=== PATIENT | female | born 1930 | race Caucasian/White ===

== ENCOUNTER 2017-02-27 17:20 | Emergency (ER) | payer MEDICARE, OTHER ==
[~2017-02-27 17:20] MED LIST: ACET-1890 PO; Aspirin PO; CALC600T85 PO; CLOP75TA3 PO; DOCU100T7 PO; HYDR25TA4 PO; LAMO150T2 PO; LISI-611 PO; PRED5DRO6 LEFT_EYE; SENN15TA PO
[2017-02-27 17:32] VITALS: BP 183/94; PULSE 77; RESP 17; O2SAT 95
--- NOTE | 2017-02-27 17:36 | ED.REPORT ---
HPI-General Illness Date of Service Feb 27, 2017 ED Provider: Archie Mar MD Pt is an 87 y.o. 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 Per staff at the facility the pt began clutching her chest and they assumed she was having chest pain. That appeared to resolve but they then noticed that she was not ambulatory. Per medics patient had no facial droop, equal raisin washer strength in extremities, and was responding to commands on-scene. Nursing Notes Stated Complaint: DECREASED RESPONSIVENESS Nursing Notes Reviewed: Yes Allergies: Coded Allergies: No Known Allergies (Verified , 02/27/17) Scheduled ([Aspirin]) 81 MG TAB.CHEW 81 MG PO DAILY Calcium Carbonate (Caltrate 600) 600 Mg Tablet 600 MG PO AM Clopidogrel Bisulfate (Plavix) 75 Mg Tablet 75 MG PO DAILY Docusate Sodium (Stool Softener) 100 Mg Tablet 200 MG PO BID Hydrochlorothiazide (Hydrochlorothiazide) 25 Mg Tablet 12.5 MG PO DAILY Lamotrigine (Lamotrigine) 150 Mg Tablet 150 MG PO HS Lisinopril (Zestril) 20 Mg Tablet 20 MG PO DAILY Prednisolone Acetate (Prednisolone Acetate) 5 Ml Drops.susp 1 LEFT_EYE HS Scheduled PRN Acetaminophen (Tylenol) 325 Mg Tablet 650 MG PO Q4H PRN PRN For Pain Sennosides (Ex-Lax) 15 Mg Tablet 15 MG PO PRN For Constipation General Time Seen by MD: 17:32 Chief Complaint Altered mental status Hx Obtained From: Provider Network Analyst, EMS Unable to Obtain Hx: Patient condition Arrived By: Ambulance Sudden in Onset?: Yes Onset Occurred: 1 - 4 hours ago Symptom Duration: Since onset Past Medical History Past Medical History Non-verbal secondary to CVA HTN DM II Macular degeneration Reports: Cancer Past Surgical History Left mastectomy Reports: Cataract surgery (Right) Reports: Hip replacement (bilateral) Physical Exam Vital Signs Vital Signs Date Time Temp Pulse Resp B/P Pulse Ox O2 Delivery O2 Flow Rate FiO2 02/27/17 17:32 36.4 77 17 183/94 95 Room Air Initial VS: Reviewed Interpretation & Diagnostics Lab Results Interpretation Result Diagram: 02/27/17 1737 02/27/17 1737 Test 02/27/17 17:37 White Blood Count 9.0th/mm3 (3.8-10.1) Red Blood Count 4.31mil/mm3 (3.90-5.20) Hemoglobin 12.8g/dL (12.0-15.6) Hematocrit 37.8% (35.0-46.0) Mean Corpuscular Volume 87.7fL (81-100) Mean Corpuscular Hemoglobin 29.7pg (27.0-35.0) Mean Corpuscular Hemoglobin Concent 33.9% (32.0-37.0) Red Cell Distribution Width 14.4% (12.3-15.4) Platelet Count 268bil/L (150-400) Neutrophils (%) (Auto) 60.2% (40-74) Lymphocytes (%) (Auto) 30.9% (14-46) Monocytes (%) (Auto) 7.0% (4-12) Eosinophils (%) (Auto) 1.6% (0-5) Basophils (%) (Auto) 0.2% (0-3) Sodium Level 142mEq/L (134-144) Potassium Level 3.7mEq/L (3.5-5.2) Chloride Level 98mEq/L (97-108) Carbon Dioxide Level 27mmol/L (18-29) Blood Urea Nitrogen 20mg/dL (8-27) Creatinine 0.92mg/dL (0.57-1.00) Estimat Glomerular Filtration Rate 83mL/min (>59) Glucose Level 131mg/dL (60-99) Calcium Level 9.7mg/dL (8.5-10.1) Magnesium Level 2.1mg/dL (1.6-2.6) Total Bilirubin 0.4mg/dL (0.0-1.2) Aspartate Amino Transf (AST/SGOT) 17U/L (0-50) Alanine Aminotransferase (ALT/SGPT) 11U/L (0-32) Alkaline Phosphatase 104U/L (25-165) Troponin T < 0.010ug/L (0.0-0.011) Total Protein 7.2g/dL (6.4-8.4) Albumin 4.2g/dL (3.4-5.0) Re-Eval/Medical Decision Source of Hx: Old records Counseled Regarding: Diagnosis, Lab results, Need for follow-up, When/why to return to ED Discharge & Departure Referrals: Luis Miguel Granado DO (PCP) Layo Attestation Portions of this note were transcribed by Eleanor Lewis. I, Dr. Mar personally performed the history, physical exam and medical decision-making; I reviewed and confirmed the accuracy of the information in the transcribed note. Signed by: Layo Ye, 02/27/17 and 0000. copies to: Luis Miguel Granado Donald L MD Feb 27, 2017 17:36 ELEANOR LEWIS Feb 27, 2017 17:41 Naz Rios MD Feb 27, 2017 18:35
[2017-02-27 17:55] LABS: BASOPHILS % (AUTO) 0.2 % (0-3); EOSINOPHILS % (AUTO) 1.6 % (0-5); Mean Corpuscular Hemoglobin 29.7 pg (27.0-35.0); Mean Corpuscular Volume 87.7 fL (81-100); NEUTROPHILS % (AUTO) 60.2 % (40-74); Platelet Count 268 bil/L (150-400)
--- NOTE | 2017-02-27 18:07 | DRSVH ---
PROCEDURE: CT BRAIN WITHOUT CONTRAST ([id number]) INDICATIONS: Acute altered level of consciousness. TECHNIQUE: Noncontrast 4.5 mm thick angled axial sections acquired from the foramen magnum to the vertex, with c oronal reformats. COMPARISON: [facility], CT, BRAIN W/O CONTRAST, 05/13/2011, 13:06. FINDINGS: Image quality: Excellent. CSF spaces: Basal cisterns are patent. No extra-axial fluid collections. The ventricles are symmet alexa in size and shape. Brain: No intracranial bleeds or masses. There is cerebral volume loss for age, with resultant vent ricular and sulcal prominence. There are severe periventricular and deep white matter chronic small vessel ischemic changes. Old left MCA distribution infarct is stable compared to prior examination. There is intracranial internal carotid artery and vertebral artery atherosclerosis. Skull and face: Calvarium and visualized facial bones appear intact, without suspicious lesions. Sinuses: Visualized sinuses and mastoids are clear. IMPRESSION: No acute intracranial disease process. Dictated by: Kellie Gutierrez MD, PhD on 02/27/2017 at 18:03 Approved by: Kellie Gutierrez MD, PhD on 02/27/2017 at 18:06
--- NOTE | 2017-02-27 18:08 | DRSVH ---
PROCEDURE: X-RAY CHEST ONE VIEW, PORTABLE ([id number]) INDICATIONS: altered level of conscousness TECHNIQUE: One view of the chest was acquired. COMPARISON: [facility], , CHEST 1VW, 06/06/2014, 14:24. FINDINGS: Surgical changes and devices: Right chest wall Port-A-Cath is stable. Chest wall and left axillary clips are stable. Lungs and pleura: No pleural effusions or pneumothorax. Lungs are clear. Mediastinum: Mediastinal contours appear normal. Heart size is normal. Bones and chest wall: No suspicious bony lesions. Overlying soft tissues appear unremarkable. IMPRESSION: No acute cardiopulmonary disease process. Dictated by: Kellie Gutierrez MD, PhD on 02/27/2017 at 18:06 Approved by: Kellie Gutierrez MD, PhD on 02/27/2017 at 18:07
[2017-02-27 18:16] LABS: TROPONIN T < 0.010 ug/L (0.0-0.011)
[2017-02-27 18:26] LABS: Magnesium 2.1 mg/dL (1.6-2.6)
--- NOTE | 2017-02-27 18:35 | ED.REPORT ---
HPI-General Illness Date of Service Feb 27, 2017 ED Provider: Naz Rios MD Pt is an 87 y.o. 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 Per staff at the facility the pt began clutching her chest and they assumed she was having chest pain. That appeared to resolve but they then noticed that she was not ambulatory which is abnormal because she is normally is able to walk very short distances. Per medics patient had no facial droop, equal manager architectural strength in extremities, and was responding to commands on-scene. Her last stroke was 2006. The daughter has noticed she has been globally weak recently in the sense that she is not moving as much, is less interactive, and is drooling. She has experienced similar symptoms previously and was found to have "a lot of fluid around her heart". There has been no recent cough, nausea, vomiting, diarrhea, fever. No history able to be obtained from the patient secondary to AMS. Nursing Notes Stated Complaint: DECREASED RESPONSIVENESS Chief Complaint: General Complaint Nursing Notes Reviewed: Yes Allergies: Coded Allergies: No Known Allergies (Verified , 02/27/17) Scheduled ([Aspirin]) 81 MG TAB.CHEW 81 MG PO DAILY Calcium Carbonate (Caltrate 600) 600 Mg Tablet 600 MG PO AM Cephalexin (Cephalexin) 500 Mg Tablet 500 MG PO BID Clopidogrel Bisulfate (Plavix) 75 Mg Tablet 75 MG PO DAILY Docusate Sodium (Stool Softener) 100 Mg Tablet 200 MG PO BID Hydrochlorothiazide (Hydrochlorothiazide) 25 Mg Tablet 12.5 MG PO DAILY Lamotrigine (Lamotrigine) 150 Mg Tablet 150 MG PO HS Lisinopril (Zestril) 20 Mg Tablet 20 MG PO DAILY Prednisolone Acetate (Prednisolone Acetate) 5 Ml Drops.susp 1 LEFT_EYE HS Scheduled PRN Acetaminophen (Tylenol) 325 Mg Tablet 650 MG PO Q4H PRN PRN For Pain Sennosides (Ex-Lax) 15 Mg Tablet 15 MG PO PRN For Constipation General Time Seen by MD: 18:33 Chief Complaint Other (ams) Hx Obtained From: Daughter, EMS Unable to Obtain Hx: Mental status Arrived By: Ambulance Sudden in Onset?: Yes Onset Occurred: 1 - 4 hours ago Symptom Duration: Since onset Past Medical History Past Medical History Non-verbal secondary to CVA HTN DM II Macular degeneration Reports: Cancer Past Surgical History Left mastectomy Reports: Cataract surgery (Right) Reports: Hip replacement (bilateral) Smoking History Unknown if Ever Smoker Social History Drug Use: Denies drug use Ambulatory Status Wheelchair Review of Systems Unable to Obtain ROS Patient condition, Mental status Full Review of Systems Constitutional: Reports: Weakness - generalized, Denies: Chills, Fever GI: Denies: Abdominal pain, Diarrhea, Nausea, Vomiting Neurologic: Reports: Change LOC, Confusion Physical Exam Vital Signs Vital Signs Date Time Temp Pulse Resp B/P Pulse Ox O2 Delivery O2 Flow Rate FiO2 02/27/17 21:39 36.4 79 16 157/83 98 Room Air 02/27/17 20:57 77 16 160/87 97 Room Air 02/27/17 17:32 36.4 77 17 183/94 95 Room Air Initial VS: Reviewed, Vital signs abnormal Neck: Supple, Full range of motion Abdomen / GI: Soft, Non-tender, No guarding, No rebound, No distention Psychiatric: Mood/affect normal General/Constitutional: Awake, No acute distress, Cooperative Head / Eyes: Atraumatic, Normocephalic, PERRL Swelling and erythema to the left inferior eyelid with cobblestoning ENT: Atraumatic, Airway patent Mouth: Positive: Mucous membranes dry Tongue deviation to the left Slight decrease of nasolabial fold on the left Respiratory / Chest: Breath sounds = bilat, No respiratory distress, No rales, No rhonchi, No wheezing Poor airation Cardiovascular: Heart rate NL, Regular rhythm Heart Sounds / Murmur: Positive: Systolic murmur present.. (III/) Upper Extremities Upper Extremity / MS: Atraumatic, No erythema, No deformity, Vascular intact Lower Extremity / Pelvis / MS: Atraumatic, No deformity, Vascular intact Trace edema of RLE which is chronic NEURO: Aphasic which is normal for her Follows commands Able to move right side No obvious facial droop but some loss of the nasal labial fold She has tongue deviation to the left. Interpretation & Diagnostics Lab Results Interpretation Result Diagram: 02/27/17 1737 02/27/17 1737 Test 02/27/17 17:37 02/27/17 19:40 02/27/17 20:10 White Blood Count 9.0th/mm3 (3.8-10.1) Red Blood Count 4.31mil/mm3 (3.90-5.20) Hemoglobin 12.8g/dL (12.0-15.6) Hematocrit 37.8% (35.0-46.0) Mean Corpuscular Volume 87.7fL (81-100) Mean Corpuscular Hemoglobin 29.7pg (27.0-35.0) Mean Corpuscular Hemoglobin Concent 33.9% (32.0-37.0) Red Cell Distribution Width 14.4% (12.3-15.4) Platelet Count 268bil/L (150-400) Neutrophils (%) (Auto) 60.2% (40-74) Lymphocytes (%) (Auto) 30.9% (14-46) Monocytes (%) (Auto) 7.0% (4-12) Eosinophils (%) (Auto) 1.6% (0-5) Basophils (%) (Auto) 0.2% (0-3) Sodium Level 142mEq/L (134-144) Potassium Level 3.7mEq/L (3.5-5.2) Chloride Level 98mEq/L (97-108) Carbon Dioxide Level 27mmol/L (18-29) Blood Urea Nitrogen 20mg/dL (8-27) Creatinine 0.92mg/dL (0.57-1.00) Estimat Glomerular Filtration Rate 83mL/min (>59) Glucose Level 131mg/dL (60-99) Calcium Level 9.7mg/dL (8.5-10.1) Magnesium Level 2.1mg/dL (1.6-2.6) Total Bilirubin 0.4mg/dL (0.0-1.2) Aspartate Amino Transf (AST/SGOT) 17U/L (0-50) Alanine Aminotransferase (ALT/SGPT) 11U/L (0-32) Alkaline Phosphatase 104U/L (25-165) Total Protein 7.2g/dL (6.4-8.4) Albumin 4.2g/dL (3.4-5.0) Urine Color Yellow (YELLOW) Urine Appearance Hazy (CLEAR,HAZY) Urine pH 7.0 (5.0-8.0) Urine Specific [place] 1.015 (1.003-1.035) Urine Protein Negativemg/dL (NEG,TRACE) Urine Glucose (UA) Negativemg/dL (NEGATIVE) Urine Ketones Negativemg/dL (NEGATIVE) Urine Occult Blood Moderate (NEGATIVE) Urine Nitrite Positive (NEGATIVE) Urine Bilirubin Negative (NEGATIVE) Urine Urobilinogen Normalmg/dL (NORMAL) Urine Leukocyte Esterase Large (NEGATIVE) Urine RBC 3-10/hpf (0-2) Urine WBC >50/hpf (0-5) Urine Epithelial Cells Many/hpf (NONE-MOD) Urine Crystals None seen (NONE SEEN) Urine Bacteria Many/hpf (NONE-FEW) Urine Hyaline Casts None/lpf (NONE) Urine Granular Casts None seen (NONE SEEN) Urine Waxy Casts None seen (NONE SEEN) Urine Red Blood Cell Casts None seen (NONE SEEN) Urine White Blood Cell Casts None seen (NONE SEEN) Urine Mucus None seen (None Seen) Urine Trichomonas None seen (NONE SEEN) Urine Yeast None (NONE SEEN) Urinalysis Comment None Urine Culture Reflexed Indicated Troponin T < 0.010ug/L (0.0-0.011) ECG Interpretation ECG Interpretation: Sinus rhythm rate 68 PACs LAD Inferior Q waves in III and AvF Lateral ST depression in I and AvL - 0.5 mm Similar to prior EKG taken on 06/[address] changes Time: 18:48 Interpreted by: ED physician Normal ECG Interpretation: Normal intervals X-Ray Chest Interpretation Chest Xray Interpretation: IMPRESSION: No acute cardiopulmonary disease process. Dictated by: Kellie Gutierrez MD, PhD on 02/27/2017 at 18:06 Approved by: Kellie Gutierrez MD, PhD on 02/27/2017 at 18:07 View: Portable, 1 view Interpretation / Wet Read by: Interpret - Radiologist CT Head Interpretation IMPRESSION: No acute intracranial disease process. Dictated by: Kellie Gutierrez MD, PhD on 02/27/2017 at 18:03 Approved by: Kellie Gutierrez MD, PhD on 02/27/2017 at 18:06 Study: Head CT no contrast Interpretation / Wet Read by: Interpret - Radiologist Re-Eval/Medical Decision Med Decision/Clinical Course The patient does not speak since not clear as to what symptoms she was having but staff noted that she was weaker since yesterday and today she grabbed her chest.she might be having chest pain. The patient had 2 troponins which were negative and no acute EKG changes which essentially involves her out for ischemia. She was found to have a urinary tract infection which could explain her symptoms. There is also question of a new stroke however the patient seems to be at baseline per her daughter. There was mention she had a left facial droop when I sat her the patient was able to smile and there is no asymmetry and the daughter felt she looked normal. Source of Hx: Old records Time of Eval: 21:02 Re-Evaluation/Progress Note: Informed daughter of lab results indicating UTI. Counseled Regarding: Diagnosis, Lab results, Need for follow-up, When/why to return to ED Discharge & Departure Primary Impression: UTI (urinary tract infection) Urinary tract infection type: site unspecified Hematuria presence: without hematuria Qualified Code: N39.0 - Urinary tract infection, site not specified Disposition: Home Discharge Condition All VS Reviewed: Yes Condition: Stable Patient Instructions: Urinary Traction Infection in Older Adults (ED) Additional Instructions: Her labs were normal other than her urine which showed signs of infection. The head CT and chest x-ray were normal. Encourage fluids. She needs to start her antibiotic course tomorrow evening. Seek care for fever or worsening or concerning symptoms. Referrals: Luis Miguel Granado DO (PCP) Armenibnaila Attestation Portions of this note were transcribed by Dawood Beavers. I, Dr. Rios personally performed the history, physical exam and medical decision-making; I reviewed and confirmed the accuracy of the information in the transcribed note. Signed by Layo Donald, 02/27/17 - [id number] copies to: Luis Miguel Granado Jena M MD Feb 27, 2017 18:35 DAWOOD BEAVERS Feb 27, 2017 18:43
[2017-02-27] MEDS ORDERED: 0.9% Sodium Chloride 1,000 ML IV ONE (18:45)
[2017-02-27 20:27] LABS: APPEARANCE,URINE HAZY (CLEAR,HAZY); COLOR,URINE YELLOW (YELLOW)
[2017-02-27 20:28] LABS: OCCULT BLOOD,URINE MODERATE (NEGATIVE); UROBILINOGEN,URINE NORMAL (NORMAL)
[2017-02-27] MEDS ORDERED: cefTRIAXone Inj 2,000 MG in Dextrose 5% Minibag Plus 50 ML IV ONE (20:35)
[2017-02-27 20:57] VITALS: BP 160/87; PULSE 77; RESP 16; O2SAT 97
[2017-02-27] MEDS ORDERED: CEPH500T PO (21:20)
[2017-02-27 21:39] VITALS: BP 157/83; PULSE 79; RESP 16; O2SAT 98
== END 2017-02-27 21:40 | disposition home or self-care (01) ==
LOC: SED 17:20 → EDBD 17:20 → SED 21:40
DX: N39.0 Urinary tract infection, site not specified (principal); B96.20 Unspecified Escherichia coli [E. coli] as the cause of diseases classified elsewhere; E11.9 Type 2 diabetes mellitus without complications; I10 Essential (primary) hypertension; Z85.9 Personal history of malignant neoplasm, unspecified; Z86.73 Personal history of transient ischemic attack (TIA), and cerebral infarction without residual deficits; Z79.82 Long term (current) use of aspirin; Z79.899 Other long term (current) drug therapy
CPT/HCPCS: 36415; 70450; 71010; 80053; 81000; 82948; 83735; 84484; 85025; 87077; 87086; 87088; 87186; 93005; 96361; 96365; 99285; J0696; J7030